=== PATIENT | male | born 1935 | race Asian ===

== ENCOUNTER 2016-11-18 22:49 | Emergency (ER) | payer OTHER ==
[~2016-11-18] VITALS: Ht 177.8 cm; Wt 81.6 kg
[2016-11-18 22:54] VITALS: BP 151/75; PULSE 69; RESP 18; TEMP 98.1; O2SAT 97
[2016-11-19 02:35] VITALS: BP 142/83; PULSE 75; RESP 18; TEMP 98.1; O2SAT 97
== END 2016-11-19 02:35 | disposition home or self-care (01) ==
LOC: SED 22:49 → EDBD 22:49 → SED 11-19 02:35
DX: S00.03XA Contusion of scalp, initial encounter (principal); D64.9 Anemia, unspecified; G20 Parkinson's disease; W19.XXXA Unspecified fall, initial encounter; Y93.89 Activity, other specified; Y92.89 Other specified places as the place of occurrence of the external cause; Y99.8 Other external cause status
CPT/HCPCS: 70450-TC; 99284

== ENCOUNTER 2022-11-21 17:37 | Inpatient (IN) | payer MEDICARE, OTHER ==
[~2022-11-21] VITALS: Ht 170.2 cm; Wt 85.7 kg
[2022-11-21 17:37] VITALS: BP_SYST 180
[2022-11-21] MEDS ORDERED: iohexoL 350 mgI/mL, 100 ML INFUS..BTL IV ONE (17:51)
[2022-11-21] MEDS ORDERED: OMEP20CA15 PO (18:08)
[2022-11-21] MEDS ORDERED: ASCO500T20 PO (18:08)
[2022-11-21] MEDS ORDERED: ASA81 PO (18:08)
[2022-11-21] MEDS ORDERED: MULT-1193 PO (18:08)
[2022-11-21] MEDS ORDERED: ZINC220T3 PO (18:08)
[2022-11-21] MEDS ORDERED: WITC1MED4 TP (18:08)
[2022-11-21] MEDS ORDERED: TAMS-11 PO (18:08)
[2022-11-21] MEDS ORDERED: LIP10 PO (18:08)
[2022-11-21] MEDS ORDERED: MAGN400T29 PO (18:08)
[2022-11-21] MEDS ORDERED: CARB1TAB33 PO (18:08)
[2022-11-21] MEDS ORDERED: DOCU-144 PO (18:08)
[2022-11-21] MEDS ORDERED: CEL20 PO (18:08)
[2022-11-21] MEDS ORDERED: POTA-197 PO (18:08)
[2022-11-21] MEDS ORDERED: METO25TA3 PO (18:08)
[2022-11-21] MEDS ORDERED: MOM PO (18:08)
[2022-11-21] MEDS ORDERED: APIX5TAB PO (18:08)
[2022-11-21 18:24] LABS: BASOPHILS % (AUTO) 0.4 % (0.0-2.0); EOSINOPHILS # (AUTO) 0.2 K/uL (0.0-0.4); LYMPHOCYTES # (AUTO) 0.9 K/uL (1.0-5.5); MEAN CORPUSCULAR HGB CONC 34 % (32-36); MONOCYTES # (AUTO) 0.5 K/uL (0.0-1.0); NEUTROPHILS # (AUTO) 2.4 K/uL (1.8-7.7); WHITE BLOOD COUNT (AUTO) 3.9 K/uL (4.8-10.8)
[2022-11-21 18:29] LABS: EOSINOPHILS % (AUTO) 4.6 % (0.0-4.0); HEMATOCRIT 32.1 % (36-54); HEMOGLOBIN 10.9 g/dL (14.0-18.0); LYMPHOCYTES % (AUTO) 22.2 % (20.5-51.5); MEAN CORPUSCULAR HEMOGLOBIN 31 pg (27-31); MEAN CORPUSCULAR VOLUME 92 fL (79.0-98.0); MONOCYTES % (AUTO) 11.6 % (1.7-9.3); NEUTROPHILS % (AUTO) 61.2 % (40.0-70.0); PLATELET COUNT (AUTO) 123 K/uL (130-430); RED BLOOD CELL COUNT(AUTO) 3.48 MIL/uL (4.2-6.2); RED CELL DISTRIBUTION WIDTH 14.4 % (9.0-15.0)
[2022-11-21 18:45] LABS: ANION GAP 5 (5-15); CALCIUM 8.6 mg/dL (8.4-11.0); CHLORIDE 102 mmol/L (98-107); CREATININE 1.46 mg/dL (0.55-1.30); GLUCOSE 150 mg/dL (70-99); UREA NITROGEN, BLOOD 35 mg/dL (8-21)
[2022-11-21 18:49] LABS: PROTHROMBIN TIME 10.9 SECS (9.5-12.5)
[2022-11-21 18:51] LABS: ALANINE AMINOTRANSFERASE 5 U/L (12-78); ALBUMIN 3.2 g/dL (3.4-4.8); ASPARTATE AMINOTRANSFERASE 21 U/L (10-37); TOTAL BILIRUBIN 0.3 mg/dL (0.0-1.0)
[2022-11-21] MEDS ORDERED: cloNIDine HCL 0.1 MG TABLET PO PRN (20:30)
[2022-11-21] MEDS: APIXABAN 2.5 MG TABLET PO SCH (21:00)
[2022-11-21] MEDS: MAGNESIUM OXIDE 400 MG TABLET PO SCH (21:00)
[2022-11-21] MEDS: ATORVASTATIN 10 MG TABLET PO SCH (21:00)
[2022-11-21] MEDS ORDERED: LORazepam 2 MG/ML VIAL IVP ONE (21:00)
[2022-11-21] MEDS ORDERED: PHENYLEPH/MINERAL OIL/PETROLAT 57 GM OINT.APPL TP PRN (21:00)
[2022-11-21] MEDS: DOCUSATE SODIUM 100 MG CAPSULE PO SCH (21:00)
[2022-11-21] MEDS: CARBIDOPA/LEVODOPA 25/100 MG TABLET PO SCH (21:00)
[2022-11-21] MEDS ORDERED: hydrALAZINE HCL 20 MG/ML VIAL IVP PRN (21:15)
[2022-11-21 22:05] VITALS: BP_SYST 123
[2022-11-21] MEDS: LOSARTAN POTASSIUM 50 MG TABLET (COZAAR) PO SCH (23:05)
[2022-11-22 01:17] VITALS: BP_SYST 159
[2022-11-22 06:22] LABS: BASOPHILS % (AUTO) 0.4 % (0.0-2.0); EOSINOPHILS # (AUTO) 0.2 K/uL (0.0-0.4); EOSINOPHILS % (AUTO) 4.1 % (0.0-4.0); HEMATOCRIT 34.1 % (36-54); HEMOGLOBIN 11.5 g/dL (14.0-18.0); LYMPHOCYTES % (AUTO) 18.7 % (20.5-51.5); MEAN CORPUSCULAR HEMOGLOBIN 31 pg (27-31); MEAN CORPUSCULAR HGB CONC 34 % (32-36); MEAN CORPUSCULAR VOLUME 93 fL (79.0-98.0); MONOCYTES # (AUTO) 0.5 K/uL (0.0-1.0); MONOCYTES % (AUTO) 9.5 % (1.7-9.3); NEUTROPHILS # (AUTO) 3.6 K/uL (1.8-7.7); NEUTROPHILS % (AUTO) 67.3 % (40.0-70.0); PLATELET COUNT (AUTO) 123 K/uL (130-430); RED BLOOD CELL COUNT(AUTO) 3.68 MIL/uL (4.2-6.2); RED CELL DISTRIBUTION WIDTH 14.3 % (9.0-15.0); WHITE BLOOD COUNT (AUTO) 5.4 K/uL (4.8-10.8)
[2022-11-22 06:46] LABS: ANION GAP 5 (5-15); CALCIUM 8.9 mg/dL (8.4-11.0); CHLORIDE 106 mmol/L (98-107); CREATININE 1.39 mg/dL (0.55-1.30); GLUCOSE 100 mg/dL (70-99); UREA NITROGEN, BLOOD 33 mg/dL (8-21)
[2022-11-22 08:04] VITALS: BP_SYST 152
[2022-11-22] MEDS: KCL 20 mEq in D5NS 1000 mL 1,000 ML IV SCH (12:03)
[2022-11-22 12:57] VITALS: BP_SYST 153
[2022-11-22] MEDS: MILK OF MAGNESIA 30 ML UDC PO SCH (13:24)
[2022-11-22] MEDS: TAMSULOSIN HCL 0.4 MG CAP PO SCH (13:24)
[2022-11-22] MEDS: APIXABAN 2.5 MG TABLET PO SCH ×2 (13:26→22:13)
[2022-11-22] MEDS: MAGNESIUM OXIDE 400 MG TABLET PO SCH ×2 (13:26→22:13)
[2022-11-22] MEDS: CITALOPRAM HYDROBROMIDE 20 MG TABLET PO SCH (13:26)
[2022-11-22] MEDS: ASPIRIN 81 MG TAB.CHEW PO SCH (13:26)
[2022-11-22] MEDS: POTASSIUM CHLORIDE 10 MEQ TAB.PRT.SR PO SCH (13:26)
[2022-11-22] MEDS: ASCORBIC ACID 500 MG TABLET PO SCH (13:27)
[2022-11-22] MEDS: METOPROLOL SUCCINATE 25 MG TAB.SR.24H (TOPROL XL) PO SCH (13:29)
[2022-11-22] MEDS: PANTOPRAZOLE SODIUM 40 MG TAB PO SCH (13:29)
[2022-11-22] MEDS: DOCUSATE SODIUM 100 MG CAPSULE PO SCH ×2 (13:29→22:12)
[2022-11-22] MEDS: LOSARTAN POTASSIUM 50 MG TABLET (COZAAR) PO SCH ×2 (13:30→22:13)
[2022-11-22] MEDS: CARBIDOPA/LEVODOPA 25/100 MG TABLET PO SCH (13:30)
[2022-11-22] MEDS: MULTIVITS,CA,MINERALS/IRON/FA 1 TABLET PO SCH (13:30)
[2022-11-22 16:00] VITALS: BP_SYST 149
[2022-11-22 19:35] VITALS: BP_SYST 143
[2022-11-22] MEDS: CARBIDOPA/LEVODOPA 25/250 MG TABLET PO SCH (22:12)
[2022-11-22] MEDS: ATORVASTATIN 10 MG TABLET PO SCH (22:13)
[2022-11-23 00:45] VITALS: BP_SYST 105
[2022-11-23] MEDS: KCL 20 mEq in D5NS 1000 mL 1,000 ML IV SCH ×2 (01:46→17:27)
[2022-11-23 08:35] LABS: BASOPHILS % (AUTO) 0.4 % (0.0-2.0); EOSINOPHILS # (AUTO) 0.2 K/uL (0.0-0.4); EOSINOPHILS % (AUTO) 4.4 % (0.0-4.0); HEMATOCRIT 33.1 % (36-54); HEMOGLOBIN 10.9 g/dL (14.0-18.0); LYMPHOCYTES # (AUTO) 0.8 K/uL (1.0-5.5); LYMPHOCYTES % (AUTO) 17.2 % (20.5-51.5); MEAN CORPUSCULAR HEMOGLOBIN 31 pg (27-31); MEAN CORPUSCULAR HGB CONC 33 % (32-36); MONOCYTES # (AUTO) 0.5 K/uL (0.0-1.0); NEUTROPHILS # (AUTO) 3.3 K/uL (1.8-7.7); PLATELET COUNT (AUTO) 108 K/uL (130-430); RED BLOOD CELL COUNT(AUTO) 3.47 MIL/uL (4.2-6.2); RED CELL DISTRIBUTION WIDTH 14.2 % (9.0-15.0); WHITE BLOOD COUNT (AUTO) 4.8 K/uL (4.8-10.8)
[2022-11-23 08:41] LABS: MEAN CORPUSCULAR VOLUME 95 fL (79.0-98.0)
[2022-11-23] MEDS: POTASSIUM CHLORIDE 10 MEQ TAB.PRT.SR PO SCH (08:46)
[2022-11-23] MEDS: ASCORBIC ACID 500 MG TABLET PO SCH (08:46)
[2022-11-23] MEDS: ASPIRIN 81 MG TAB.CHEW PO SCH (08:46)
[2022-11-23] MEDS: MAGNESIUM OXIDE 400 MG TABLET PO SCH ×2 (08:46→21:29)
[2022-11-23] MEDS: PANTOPRAZOLE SODIUM 40 MG TAB PO SCH (08:46)
[2022-11-23] MEDS: CARBIDOPA/LEVODOPA 25/250 MG TABLET PO SCH ×4 (08:46→21:28)
[2022-11-23] MEDS: MULTIVITS,CA,MINERALS/IRON/FA 1 TABLET PO SCH (08:46)
[2022-11-23] MEDS: DOCUSATE SODIUM 100 MG CAPSULE PO SCH ×2 (08:46→21:28)
[2022-11-23] MEDS: MILK OF MAGNESIA 30 ML UDC PO SCH (08:49)
[2022-11-23] MEDS: LOSARTAN POTASSIUM 50 MG TABLET (COZAAR) PO SCH ×2 (08:49→21:28)
[2022-11-23] MEDS: TAMSULOSIN HCL 0.4 MG CAP PO SCH (08:49)
[2022-11-23] MEDS: CITALOPRAM HYDROBROMIDE 20 MG TABLET PO SCH (08:49)
[2022-11-23] MEDS: METOPROLOL SUCCINATE 25 MG TAB.SR.24H (TOPROL XL) PO SCH (08:49)
[2022-11-23 08:53] LABS: ANION GAP 7 (5-15); CALCIUM 8.6 mg/dL (8.4-11.0); CHLORIDE 107 mmol/L (98-107); CREATININE 1.25 mg/dL (0.55-1.30); GLUCOSE 137 mg/dL (70-99); UREA NITROGEN, BLOOD 32 mg/dL (8-21)
[2022-11-23] MEDS: APIXABAN 2.5 MG TABLET PO SCH ×2 (09:02→21:28)
[2022-11-23 11:07] VITALS: BP_SYST 146
[2022-11-23 15:31] VITALS: BP_SYST 124
[2022-11-23 19:30] VITALS: BP_SYST 133
[2022-11-23] MEDS: ATORVASTATIN 10 MG TABLET PO SCH (21:29)
[2022-11-24 00:20] VITALS: BP_SYST 156
[2022-11-24 08:09] LABS: BASOPHILS % (AUTO) 0.3 % (0.0-2.0); EOSINOPHILS # (AUTO) 0.2 K/uL (0.0-0.4); EOSINOPHILS % (AUTO) 3.8 % (0.0-4.0); HEMATOCRIT 34.6 % (36-54); HEMOGLOBIN 11.5 g/dL (14.0-18.0); LYMPHOCYTES # (AUTO) 0.9 K/uL (1.0-5.5); LYMPHOCYTES % (AUTO) 14.7 % (20.5-51.5); MEAN CORPUSCULAR HEMOGLOBIN 32 pg (27-31); MEAN CORPUSCULAR HGB CONC 33 % (32-36); MEAN CORPUSCULAR VOLUME 95 fL (79.0-98.0); MONOCYTES # (AUTO) 0.4 K/uL (0.0-1.0); MONOCYTES % (AUTO) 7.6 % (1.7-9.3); NEUTROPHILS # (AUTO) 4.3 K/uL (1.8-7.7); NEUTROPHILS % (AUTO) 73.6 % (40.0-70.0); PLATELET COUNT (AUTO) 115 K/uL (130-430); RED BLOOD CELL COUNT(AUTO) 3.64 MIL/uL (4.2-6.2); WHITE BLOOD COUNT (AUTO) 5.8 K/uL (4.8-10.8)
[2022-11-24 08:31] LABS: ANION GAP 6 (5-15); CALCIUM 8.6 mg/dL (8.4-11.0); CHLORIDE 106 mmol/L (98-107); CREATININE 1.15 mg/dL (0.55-1.30); GLUCOSE 130 mg/dL (70-99); UREA NITROGEN, BLOOD 27 mg/dL (8-21)
[2022-11-24] MEDS: KCL 20 mEq in D5NS 1000 mL 1,000 ML IV SCH ×2 (10:28→21:40)
[2022-11-24] MEDS: CITALOPRAM HYDROBROMIDE 20 MG TABLET PO SCH (10:28)
[2022-11-24] MEDS: CARBIDOPA/LEVODOPA 25/250 MG TABLET PO SCH ×4 (10:29→21:41)
[2022-11-24] MEDS: MAGNESIUM OXIDE 400 MG TABLET PO SCH ×2 (10:29→21:41)
[2022-11-24] MEDS: METOPROLOL SUCCINATE 25 MG TAB.SR.24H (TOPROL XL) PO SCH (10:29)
[2022-11-24] MEDS: ASCORBIC ACID 500 MG TABLET PO SCH (10:29)
[2022-11-24] MEDS: MULTIVITS,CA,MINERALS/IRON/FA 1 TABLET PO SCH (10:30)
[2022-11-24] MEDS: TAMSULOSIN HCL 0.4 MG CAP PO SCH (10:30)
[2022-11-24] MEDS: DOCUSATE SODIUM 100 MG CAPSULE PO SCH ×2 (10:30→21:40)
[2022-11-24] MEDS: ASPIRIN 81 MG TAB.CHEW PO SCH (10:30)
[2022-11-24] MEDS: LOSARTAN POTASSIUM 50 MG TABLET (COZAAR) PO SCH ×2 (10:30→21:41)
[2022-11-24] MEDS: MILK OF MAGNESIA 30 ML UDC PO SCH (10:31)
[2022-11-24] MEDS: PANTOPRAZOLE SODIUM 40 MG TAB PO SCH (10:31)
[2022-11-24] MEDS: POTASSIUM CHLORIDE 10 MEQ TAB.PRT.SR PO SCH (10:31)
[2022-11-24] MEDS: APIXABAN 2.5 MG TABLET PO SCH ×2 (10:32→21:42)
[2022-11-24 11:45] VITALS: BP_SYST 107
[2022-11-24 16:43] VITALS: BP_SYST 110
[2022-11-24 20:00] VITALS: BP_SYST 127
[2022-11-24] MEDS: ATORVASTATIN 10 MG TABLET PO SCH (21:40)
[2022-11-25 00:36] VITALS: BP_SYST 153
[2022-11-25 02:45] VITALS: BP_SYST 130
[2022-11-25 08:03] LABS: ALANINE AMINOTRANSFERASE 9 U/L (12-78); ANION GAP 7 (5-15); ASPARTATE AMINOTRANSFERASE 23 U/L (10-37); CALCIUM 8.5 mg/dL (8.4-11.0); CHLORIDE 105 mmol/L (98-107); CREATININE 1.13 mg/dL (0.55-1.30); GLUCOSE 110 mg/dL (70-99); TOTAL BILIRUBIN 0.3 mg/dL (0.0-1.0); UREA NITROGEN, BLOOD 31 mg/dL (8-21)
[2022-11-25] MEDS: MILK OF MAGNESIA 30 ML UDC PO SCH (09:00)
[2022-11-25] MEDS: ASPIRIN 81 MG TAB.CHEW PO SCH (10:56)
[2022-11-25] MEDS: APIXABAN 2.5 MG TABLET PO SCH ×2 (10:56→21:57)
[2022-11-25] MEDS: ASCORBIC ACID 500 MG TABLET PO SCH (10:57)
[2022-11-25] MEDS: MULTIVITS,CA,MINERALS/IRON/FA 1 TABLET PO SCH (10:57)
[2022-11-25] MEDS: TAMSULOSIN HCL 0.4 MG CAP PO SCH (10:57)
[2022-11-25] MEDS: MAGNESIUM OXIDE 400 MG TABLET PO SCH ×2 (10:57→21:53)
[2022-11-25] MEDS: PANTOPRAZOLE SODIUM 40 MG TAB PO SCH (10:57)
[2022-11-25] MEDS: CITALOPRAM HYDROBROMIDE 20 MG TABLET PO SCH (10:57)
[2022-11-25] MEDS: METOPROLOL SUCCINATE 25 MG TAB.SR.24H (TOPROL XL) PO SCH (10:58)
[2022-11-25] MEDS: LOSARTAN POTASSIUM 50 MG TABLET (COZAAR) PO SCH ×2 (10:58→21:53)
[2022-11-25] MEDS: DOCUSATE SODIUM 100 MG CAPSULE PO SCH ×2 (10:59→21:53)
[2022-11-25] MEDS: POTASSIUM CHLORIDE 10 MEQ TAB.PRT.SR PO SCH (10:59)
[2022-11-25] MEDS: CARBIDOPA/LEVODOPA 25/250 MG TABLET PO SCH ×4 (10:59→21:54)
[2022-11-25 11:30] VITALS: BP_SYST 136
[2022-11-25 16:00] VITALS: BP_SYST 128
[2022-11-25] MEDS: KCL 20 mEq in D5NS 1000 mL 1,000 ML IV SCH (17:56)
[2022-11-25 20:15] VITALS: BP_SYST 154
[2022-11-25] MEDS: ATORVASTATIN 10 MG TABLET PO SCH (21:53)
[2022-11-26 00:16] VITALS: BP_SYST 164
[2022-11-26 01:00] VITALS: BP_SYST 132
[2022-11-26] MEDS: KCL 20 mEq in D5NS 1000 mL 1,000 ML IV SCH ×2 (01:33→07:14)
[2022-11-26] MEDS: DOCUSATE SODIUM 100 MG CAPSULE PO SCH ×2 (10:25→22:04)
[2022-11-26] MEDS: MULTIVITS,CA,MINERALS/IRON/FA 1 TABLET PO SCH (10:26)
[2022-11-26] MEDS: METOPROLOL SUCCINATE 25 MG TAB.SR.24H (TOPROL XL) PO SCH (10:26)
[2022-11-26] MEDS: POTASSIUM CHLORIDE 10 MEQ TAB.PRT.SR PO SCH (10:27)
[2022-11-26] MEDS: ASCORBIC ACID 500 MG TABLET PO SCH (10:27)
[2022-11-26] MEDS: TAMSULOSIN HCL 0.4 MG CAP PO SCH (10:27)
[2022-11-26] MEDS: LOSARTAN POTASSIUM 50 MG TABLET (COZAAR) PO SCH ×2 (10:27→22:11)
[2022-11-26] MEDS: MILK OF MAGNESIA 30 ML UDC PO SCH (10:27)
[2022-11-26] MEDS: PANTOPRAZOLE SODIUM 40 MG TAB PO SCH (10:27)
[2022-11-26] MEDS: ASPIRIN 81 MG TAB.CHEW PO SCH (10:27)
[2022-11-26] MEDS: CITALOPRAM HYDROBROMIDE 20 MG TABLET PO SCH (10:27)
[2022-11-26] MEDS: MAGNESIUM OXIDE 400 MG TABLET PO SCH ×2 (10:27→22:05)
[2022-11-26] MEDS: APIXABAN 2.5 MG TABLET PO SCH ×2 (10:32→22:08)
[2022-11-26] MEDS: CARBIDOPA/LEVODOPA 25/250 MG TABLET PO SCH ×4 (10:33→22:05)
[2022-11-26 12:00] VITALS: BP_SYST 147
[2022-11-26 16:00] VITALS: BP_SYST 145
[2022-11-26] MEDS: ATORVASTATIN 10 MG TABLET PO SCH (22:05)
[2022-11-27 00:23] VITALS: BP_SYST 169
[2022-11-27] MEDS: KCL 20 mEq in D5NS 1000 mL 1,000 ML IV SCH ×2 (06:25→20:27)
[2022-11-27] MEDS: MULTIVITS,CA,MINERALS/IRON/FA 1 TABLET PO SCH (09:07)
[2022-11-27] MEDS: DOCUSATE SODIUM 100 MG CAPSULE PO SCH ×2 (09:07→22:32)
[2022-11-27] MEDS: MILK OF MAGNESIA 30 ML UDC PO SCH (09:07)
[2022-11-27] MEDS: MAGNESIUM OXIDE 400 MG TABLET PO SCH ×2 (09:08→22:32)
[2022-11-27] MEDS: ASCORBIC ACID 500 MG TABLET PO SCH (09:08)
[2022-11-27] MEDS: POTASSIUM CHLORIDE 10 MEQ TAB.PRT.SR PO SCH (09:12)
[2022-11-27] MEDS: METOPROLOL SUCCINATE 25 MG TAB.SR.24H (TOPROL XL) PO SCH (09:12)
[2022-11-27] MEDS: PANTOPRAZOLE SODIUM 40 MG TAB PO SCH (09:13)
[2022-11-27] MEDS: LOSARTAN POTASSIUM 50 MG TABLET (COZAAR) PO SCH ×2 (09:13→22:48)
[2022-11-27] MEDS: CITALOPRAM HYDROBROMIDE 20 MG TABLET PO SCH (09:13)
[2022-11-27] MEDS: ASPIRIN 81 MG TAB.CHEW PO SCH (09:13)
[2022-11-27] MEDS: TAMSULOSIN HCL 0.4 MG CAP PO SCH (09:14)
[2022-11-27] MEDS: CARBIDOPA/LEVODOPA 25/250 MG TABLET PO SCH ×4 (09:15→22:34)
[2022-11-27] MEDS: APIXABAN 2.5 MG TABLET PO SCH ×2 (09:23→23:04)
[2022-11-27 16:13] VITALS: BP_SYST 160
[2022-11-27] MEDS: ATORVASTATIN 10 MG TABLET PO SCH (22:30)
[2022-11-28] VITALS (8 sets, daily range): BP systolic 126–151
[2022-11-28] MEDS: CITALOPRAM HYDROBROMIDE 20 MG TABLET PO SCH (09:37)
[2022-11-28] MEDS: MULTIVITS,CA,MINERALS/IRON/FA 1 TABLET PO SCH (09:38)
[2022-11-28] MEDS: POTASSIUM CHLORIDE 10 MEQ TAB.PRT.SR PO SCH (09:38)
[2022-11-28] MEDS: MAGNESIUM OXIDE 400 MG TABLET PO SCH (09:38)
[2022-11-28] MEDS: ASPIRIN 81 MG TAB.CHEW PO SCH (09:42)
[2022-11-28] MEDS: LOSARTAN POTASSIUM 50 MG TABLET (COZAAR) PO SCH (09:42)
[2022-11-28] MEDS: TAMSULOSIN HCL 0.4 MG CAP PO SCH (09:43)
[2022-11-28] MEDS: ASCORBIC ACID 500 MG TABLET PO SCH (09:43)
[2022-11-28] MEDS: CARBIDOPA/LEVODOPA 25/250 MG TABLET PO SCH ×2 (09:43→14:11)
[2022-11-28] MEDS: METOPROLOL SUCCINATE 25 MG TAB.SR.24H (TOPROL XL) PO SCH (09:43)
[2022-11-28] MEDS: DOCUSATE SODIUM 100 MG CAPSULE PO SCH (09:44)
[2022-11-28] MEDS: MILK OF MAGNESIA 30 ML UDC PO SCH (09:44)
[2022-11-28] MEDS: PANTOPRAZOLE SODIUM 40 MG TAB PO SCH (09:44)
[2022-11-28] MEDS: APIXABAN 2.5 MG TABLET PO SCH (09:51)
[2022-11-28] MEDS: KCL 20 mEq in D5NS 1000 mL 1,000 ML IV SCH (12:20)
== END 2022-11-28 20:20 | DRG 69 ==
LOC: SED 17:37 → STU 18:59 → SMU 11-28 12:41
PROVIDERS: ADMIT Family Medicine; ATTEND Family Medicine
DX: G45.9 Transient cerebral ischemic attack, unspecified (principal); G93.41 Metabolic encephalopathy; I69.354 Hemiplegia and hemiparesis following cerebral infarction affecting left non-dominant side; N17.9 Acute kidney failure, unspecified; I10 Essential (primary) hypertension; N40.0 Benign prostatic hyperplasia without lower urinary tract symptoms; G20 Parkinson's disease; D64.9 Anemia, unspecified; E86.0 Dehydration; E11.9 Type 2 diabetes mellitus without complications; Z20.822 Contact with and (suspected) exposure to COVID-19; Z95.0 Presence of cardiac pacemaker
CPT/HCPCS: 36415; 70450-TC; 70496; 70498; 71045; 76376; 80048; 80053; 82550; 83605; 83735; 84484; 85025; 85610-TC; 85730-TC; 87081; 87086; 92610-GN; 93005; 96374; 97163-GP; 97530-GP; 99285; G0378; J2060; Q9967